=== PATIENT | male | born 1960 | race African-American/Black ===

== ENCOUNTER 2024-05-20 07:45 | Outpatient (OUT) | payer OTHER, SELFPAY ==
--- NOTE | 2024-05-20 07:59 | ECG_ITS ---
[facility] Test Date: 2024-05-20 Pat Name: LALA BIRMINGHAM Department: Room: - Gender: Male Choker Setter: : 1960 Requested By: [id number] Order Number: [id number] Reading MD: BRENNEN CARBAJLA Measurements Intervals Ronald Rate: 57 P: 33 AR: 223 QRS: -7 QRSD: 120 T: -18 QT: 422 QTc: 412 Interpretive Statements SINUS BRADYCARDIA WITH FIRST DEGREE AV BLOCK MODERATE INTRAVENTRICULAR CONDUCTION DELAY [110+ ms QRS DURATION] NONSPECIFIC T-WAVE ABNORMALITY No previous ECG available for comparison Electronically Signed On 05-20-2024 22:50:14 EDT by BRENNEN CARBAJAL
--- NOTE | 2024-05-20 08:56 | PM.PRESUREVA ---
History of Present Illness History of Present Illness Chief complaint: elevated psa Narrative: Patient presents for preadmission testing. The patient states he had an elevated PSA blood draw followed by a prostate MRI and is now scheduled for a prostate biopsy. The patient states he does not have dysuria, hematuria, or any other urinary complaints at this time. Review of Systems ROS Narrative REVIEW OF SYSTEMS: Negative except as stated in HPI, ten or more systems reviewed. Constitutional: No fever, chills, weakness ENT: No sore throat or epistaxis Cardiovascular: No edema, chest pain, palpitations, or activity intolerance Respiratory: No shortness of breath, cough, or wheezing Musculoskeletal: No joint pain or swelling Gastrointestinal: No abdominal pain, constipation, diarrhea, or vomiting Genitourinary: No dysuria or hematuria Neurological: No numbness, tingling, weakness, or headache Psychiatric: No mood changes [facility] Medical History (Updated 05/20/24 @ 08:37 by Kassandra Wolfe NP) Back pain ?M54.9 - Dorsalgia, unspecified (ICD-10) Kidney stones ?N20.0 - Calculus of kidney (ICD-10) Pituitary tumor ?D49.7 - Neoplasm of unspecified behavior of endocrine glands and other parts of nervous system (ICD-10) Myocardial infarction ?I21.9 - Acute myocardial infarction, unspecified (ICD-10) Hypothyroidism ?E03.9 - Hypothyroidism, unspecified (ICD-10) Prediabetes ?R73.03 - Prediabetes (ICD-10) Knee fracture Femur fracture ?S72.90XA - Unspecified fracture of unspecified femur, initial encounter for closed fracture (ICD-10) Osteoarthritis ?M19.90 - Unspecified osteoarthritis, unspecified site (ICD-10) Nocturia ?R35.1 - Nocturia (ICD-10) Polyp of colon ?K63.5 - Polyp of colon (ICD-10) BPH (benign prostatic hyperplasia) ?N40.0 - Benign prostatic hyperplasia without lower urinary tract symptoms (ICD-10) Hematuria ?R31.9 - Hematuria, unspecified (ICD-10) Arthritis ?M19.90 - Unspecified osteoarthritis, unspecified site (ICD-10) CAD (coronary artery disease) ?I25.10 - Atherosclerotic heart disease of jamul coronary artery without angina pectoris (ICD-10) Hyperlipidemia ?E78.5 - Hyperlipidemia, unspecified (ICD-10) Hypertension ?I10 - Essential (primary) hypertension (ICD-10) Elevated PSA ?R97.20 - Elevated prostate specific antigen [PSA] (ICD-10) Surgical History (Updated 05/20/24 @ 08:37 by Kassandra Wolfe NP) H/O knee surgery ?Z98.890 - Other specified postprocedural states (ICD-10) S/P epidural steroid injection ?Z92.241 - Personal history of systemic steroid therapy (ICD-10) History of total hip arthroplasty ?Z96.649 - Presence of unspecified artificial hip joint (ICD-10) History of arthroplasty of knee ?Z96.659 - Presence of unspecified artificial knee joint (ICD-10) H/O colonoscopy ?Z98.890 - Other specified postprocedural states (ICD-10) S/P arterial stent ?Z95.9 - Presence of cardiac and vascular implant and graft, unspecified (ICD-10) Family History (Updated 05/20/24 @ 08:37 by Kassandra Wolfe NP) Other Family history of Alzheimer's disease Family history of diabetes mellitus Family history of heart disease Family history of hypertension Family history of myocardial infarction Family history of prostate cancer Family history of stroke Social History (Updated 05/20/24 @ 08:25 by Kassandra Wolfe NP) Within the past year, how often did you have a drink containing alcohol: never Score interpretation: A score less than 4 is consistent with normal alcohol consumption. Smoking status: Never smoker Non-prescribed substance use: denies use Highest level of school completed/degree received: high school graduate Meds Home Medications and Allergies Home Medications ?Medication ?Instructions ?Recorded ?Confirmed ?Type aspirin 81 mg tablet,delayed 81 mg PO DAILY 05/20/24 05/20/24 History release (Adult Aspirin Regimen) atorvastatin 80 mg tablet 80 mg PO DAILY 05/20/24 05/20/24 History bromocriptine 5 mg capsule 5 mg PO DAILY pituitary tumor 05/20/24 05/20/24 History carvedilol 6.25 mg tablet 6.25 mg PO BID 05/20/24 05/20/24 History chlorthalidone 25 mg tablet 25 mg PO DAILY 05/20/24 05/20/24 History levothyroxine 75 mcg tablet 75 mcg PO DAILY 08/20/24 08/20/24 History losartan 25 mg tablet 25 mg PO DAILY 05/20/24 05/20/24 History testosterone cypionate 200 mg/mL 200 mg IM .q2w 05/20/24 05/20/24 History intramuscular oil Allergies Allergy/AdvReac Type Severity Reaction Status Date / Time celecoxib [From Celebrex] Allergy shortness Verified 05/20/24 08:19 of breath Exam Narrative Exam Narrative: Constitutional: Awake, alert, comfortable, well-appearing, nontoxic, interactive, vital signs as charted Head: Normocephalic, atraumatic Neck: Supple, normal appearance, normal range of motion, no meningeal signs, no lymphadenopathy Respiratory: No respiratory distress, breath sounds clear Cardiovascular: Regular rate and rhythm, strong and regular heart tones Abdomen: Nontender, normal bowel sounds, soft, no CVA tenderness Musculoskeletal: Normal gait, no swelling or edema Skin: No rashes or induration, no lesions, only visible skin inspected Neuro: No neurological deficits, normal sensation Psychiatric: Oriented ?3, normal affect Assessment and Plan Assessment and Plan (1) Elevated PSA: (2) BPH (benign prostatic hyperplasia): Plan MRI fusion transperineal prostate biopsy scheduled with Dr. Roberts May 28, 2024.
--- NOTE | 2024-05-20 08:58 | XR_ITS ---
[address] [address] Patient Name: LALA BIRMINGHAM MRN: [id number] date: 1960 Sex: M Assigned Patient Location: [facility] Current Patient Location: [facility] Accession/Order Number: [id number] Exam Date: 05/20/2024 08:50 Report Date: 05/20/2024 09:24 At the request of: SHEMAR LIM Procedure: XR chest 2V PROCEDURE: XR chest 2V DATE: 05/20/2024 7:50 AM CDT COMPARISONS: None. CLINICAL INDICATION: 64 years Male Preop exam FINDINGS: The cardiomediastinal silhouette and pulmonary vasculature are within normal limits. The lungs are clear. There is no evidence of pleural effusion or pneumothorax. XR/XR chest 2V IMPRESSION: Chest radiograph is within normal limits. Electronically authenticated by: JESSICA HARPER Date: 05/20/2024 09:24
[2024-05-20 09:08] LABS: Hematocrit 47.5 % (42.0-54.0); Hemoglobin 15.7 g/dL (14.0-18.0); Mean Corpuscular HGB Conc 33.1 g/dL (29.9-35.2); Mean Corpuscular Hemoglobin 27.9 pg (25.9-34.0); Mean Corpuscular Volume 84.5 fL (80.0-94.0); Platelet Count 235 10^3/uL (150-450); Red Blood Count 5.62 10^6/uL (4.70-6.10); Red Cell Distribution Width 19.9 % (11.0-15.0)
[2024-05-20 09:25] LABS: Anion Gap 12.5; BUN Creatinine Ratio 14.5; Calcium 8.8 mg/dL (8.5-10.1); Carbon Dioxide 27.5 mmol/L (21.0-32.0); Chloride 103 mmol/L (98-107); Estimated GFR (African America 51 (>=60); Estimated GFR (Non-African Ame 42 (>=60); Glucose 94 mg/dL (74-106); Sodium 140 mmol/L (136-145)
[2024-05-20 09:30] LABS: INR 1.13; Partial Thromboplastin Time 31.3 sec (22.3-36.2); Prothrombin Time 11.8 sec (9.0-11.6)
[2024-05-20 09:40] LABS: Band Neutrophils Absolute 0.4 10^3/uL (0.0-0.3); Lymphocytes Absolute Manual 8.55 10^3/uL (1.20-3.80); Monocytes Absolute Manual 4.66 10^3/uL (0.30-0.80); Segmented Neut Absolute Manual 23.72 10^3/uL (1.4-6.5); White Blood Count 38.9 10^3/uL (4.0-11.0)
[2024-05-20 09:41] LABS: Basophils Abs Manual 1.16 10^3/uL (0.00-0.10); Metamyelocytes Absolute Manual 0.38; Nucleated Red Blood Cells 2
== END 2024-05-20 07:46 | disposition home or self-care (01) ==
PROVIDERS: PCP Nurse Practitioner Family; Visit Provider Urology
DX: Z01.810 Encounter for preprocedural cardiovascular examination (principal); Z01.812 Encounter for preprocedural laboratory examination; Z01.818 Encounter for other preprocedural examination; R97.20 Elevated prostate specific antigen [PSA]
CPT/HCPCS: 71046; 80048; 85007; 85027; 85610; 85730; 93005; G0463

== ENCOUNTER 2024-05-28 08:17 | Day surgery (SDC) | payer OTHER, SELFPAY ==
[2024-05-20 08:52] VITALS: BP 135/96; PULSE 55; TEMP 36.3; O2SAT 95; BMI 38.7
[2024-05-28 08:37] LABS: Hematocrit 48.7 % (42.0-54.0); Hemoglobin 15.9 g/dL (14.0-18.0); Mean Corpuscular HGB Conc 32.6 g/dL (29.9-35.2); Mean Corpuscular Hemoglobin 27.8 pg (25.9-34.0); Mean Corpuscular Volume 85.3 fL (80.0-94.0); Mean Platelet Volume 9.3 fL (9.5-13.5); Platelet Count 223 10^3/uL (150-450); Red Blood Count 5.71 10^6/uL (4.70-6.10); Red Cell Distribution Width 19.9 % (11.0-15.0)
[2024-05-28 08:43] LABS: White Blood Count 39.2 10^3/uL (4.0-11.0)
--- NOTE | 2024-05-28 08:44 | PC.NURSE ---
lab called [id number] with elevated white blood count of 39.[address] Zeenat Roberts at this time 0844
[2024-05-28 08:45] VITALS: BP 138/93; PULSE 69; TEMP 36.2; O2SAT 98; BMI 38.7
[2024-05-28 08:49] LABS: Alanine Aminotransferase 52 U/L (16-63); Albumin Globulin Ratio 0.9; Albumin Level 3.7 g/dL (3.4-5.0); Alkaline Phosphatase 76 U/L (46-116); Anion Gap 12.1; Aspartate Amino Transferase 51 U/L (15-37); BUN Creatinine Ratio 12.2; Bilirubin Total 0.4 mg/dL (0.2-1.0); Carbon Dioxide 29.4 mmol/L (21.0-32.0); Chloride 103 mmol/L (98-107); Estimated GFR (African America 44 (>=60); Estimated GFR (Non-African Ame 36 (>=60); Globulin 4.1 g/dL; Glucose 94 mg/dL (74-106); Potassium 3.5 mmol/L (3.5-5.1); Sodium 141 mmol/L (136-145); Total Protein 7.8 g/dL (6.4-8.2)
[2024-05-28] MEDS: LACTATED RINGER'S SOLUTION 1,000 ML 50 ML IV (08:52)
[2024-05-28 08:54] LABS: Band Neutrophils Absolute 1.6 10^3/uL (0.0-0.3); Eosinophils Absolute Manual 0.39 10^3/uL (0.00-0.70); Lymphocytes Absolute Manual 7.44 10^3/uL (1.20-3.80)
[2024-05-28 08:55] LABS: Basophils Abs Manual 1.17 10^3/uL (0.00-0.10)
[2024-05-28 08:56] LABS: Monocytes Absolute Manual 3.52 10^3/uL (0.30-0.80)
[2024-05-28 08:57] LABS: Metamyelocytes Absolute Manual 0.78
[2024-05-28 08:58] LABS: Atypical Lymphocytes Abs Man 1.17
[2024-05-28 08:59] LABS: Myelocytes Absolute Manual 0.39; Segmented Neut Absolute Manual 22.73 10^3/uL (1.4-6.5)
[2024-05-28] MEDS: CEFAZOLIN SODIUM 2 GM/50 ML D5W PREMIX IV (09:29)
[2024-05-28] MEDS: LIDOCAINE HCL 1% 100 MG/10 ML MDV INJ (09:58)
[2024-05-28] MEDS: BACITRACIN OINTMENT 28.4 GM TUBE 1 APPLIC TOPICAL (10:09)
[2024-05-28 10:12] VITALS: BP 106/79; PULSE 62; O2SAT 96
--- NOTE | 2024-05-28 10:17 | PM.URSON ---
Urology Surgery Operative Note Operative Note Procedure Date: 05/28/24 Time Out Performed: yes Pre-op Diagnosis: 1. Elevated PSA 2. Abnormal MRI Post-op Diagnosis: same as pre-op Procedures performed: 1. MRI fusion prostate biopsy, transperineal approach 2. Ultrasound for needle prostate biopsy, transperineal approach 3. Transrectal ultrasound of prostate and seminal vesicles 4. Nerve block of prostate Anesthesia: MAC Primary Surgeon: Ella Roberts Complications: none Estimated blood loss (mL): 1 Findings: Dilated SVs R>C. Right transition zone mid gland with hypoechoic area - MARQUITA. ROLO R>L mid to apex firm, moderately enlarged prostate. Specimens: 1. Right posterior medial (2 cores) 2. Right posterior lateral (2 cores) 3. Right base (2 cores) 4. Right anterior medial (1 core) 5. Right anterior lateral (1 core) 6. Left posterior medial (2 core) 7. Left posterior lateral (2 core) 8. Left base (2 cores) 9. Left anterior medial (1 cores) 10. Left anterior lateral (1 cores) 11. MARQUITA - right transition zone mid (3 cores) Indications for Procedures: 64 year old male with history of elevated PSA 5.8, 17% free on 03/18/24. MP-MRI prostate 05/05/24 showed PIRADS 5 lesion at the right transition zone, mid gland. Prostate volume 29 ml. After discussion of risks/benefits of management options and biopsy approaches, he elected to proceed with MRI fusion transperineal prostate biopsy. Risks were discussed to include but not limited to bleeding, pain, infection, damage to surrounding structures, hematuria, difficulty urinating, ecchymosis, swelling, injury from positioning, and need for additional procedures. Detailed description of Procedure: After informed consent was obtained, the patient was brought to the operating suite and transferred onto the operating table in supine position. Sequential compression devices were placed on bilateral lower extremities. He received the appropriate dose of preoperative IV antibiotics (Cefazolin 2 g) and MAC anesthesia was induced. He was positioned in the dorsal lithotomy position with scrotum secured out of the perineum with tape, and the appropriate pressure points padded, prepped and draped in the usual fashion for this procedure. An operative timeout was performed confirming the patient's identity, procedure and safety checks. A digital rectal exam was performed noting findings as above. The [employer] UroNav MRI fusion biopsy system was set up over the patient's pelvis for transperineal approach of prostate biopsy. A well lubricated biplane transrectal ultrasound probe was inserted into the rectum and the prostate was aligned. The gland was visualized fully in axial and sagittal views to allow for identification of anatomy and location of the urethra as noted in findings. The skin followed by periprostatic local anesthetic lidocaine 1% was delivered. The Precision Point device was placed on the ultrasound probe for transperineal approach. After rendering of real-time images with the preoperative MRI prostate, the UroNav fusion biopsy system was used to target the region of interest. Three core needle biopsies were obtained from the region of interest. Thereafter 1-2 biopsies were obtained in a systematic fashion from 10 regions of the prostate including the medial and lateral aspects of the anterior and posterior prostate, as well as base of the right and left lobes. The ultrasound probe was removed and the perineum was cleaned and dressed with antibiotic ointment, fluffs and scrotal support. Adequate hemostasis was achieved. The patient was awakened from anesthesia and sent to PACU in stable condition. Plan: Void prior to discharge home. Follow up in 1-2 weeks for pathology review. Other Provider present: No Post Operative care instructions: see discharge instructions
[2024-05-28 10:27] VITALS: BP 130/102; PULSE 71; O2SAT 96
[2024-05-28 10:55] VITALS: BP 140/99; PULSE 65; O2SAT 94
--- NOTE | 2024-05-28 10:57 | PC.NURSE ---
Denies urge to void
--- NOTE | 2024-05-28 11:22 | PC.NURSE ---
Up to bathroom and voids clear yellow without difficulty
== END 2024-05-28 11:20 | disposition home or self-care (01) ==
PROVIDERS: Anesthesiology; PCP Nurse Practitioner Family; Visit Provider Urology
PROC: (CPT 902; principal; 2024-05-28 09:30)
DX: C61 Malignant neoplasm of prostate (principal); R97.20 Elevated prostate specific antigen [PSA]; I10 Essential (primary) hypertension; E03.9 Hypothyroidism, unspecified; E78.2 Mixed hyperlipidemia; E11.9 Type 2 diabetes mellitus without complications; I25.10 Atherosclerotic heart disease of native coronary artery without angina pectoris; E78.5 Hyperlipidemia, unspecified; Z95.5 Presence of coronary angioplasty implant and graft
CPT/HCPCS: 55700; 36415; 80053; 85007; 85027; 88305; J0690; J2001; J2704; J3010